=== PATIENT | male | born 1995 | race Caucasian/White ===

== ENCOUNTER 2018-01-17 14:36 | Emergency (ER) | payer OTHER ==
[2018-01-17 14:46] VITALS: BP 133/78
--- NOTE | 2018-01-17 15:04 | UC ---
Laceration HPI - HPI Summary HPI Summary: 22 yo male presents here 45 minutes after lacerating [place] Td up to date able to bear wt pain free - History Of Current Complaint Chief Complaint: UCLaceration Stated Complaint: KNEE LACERATION Time Seen by Provider: 01/17/18 14:48 Hx Obtained From: Patient Laceration Location: Knee - L Mechanism Of Injury: Blunt Trauma Severity: Mild Pain Intensity: 0 Pain Scale Used: 0-10 Numeric Aggravating Factors: Nothing Full Body (No Head): 1 - lac - Allergies/Home Medications Allergies/Adverse Reactions: Allergies Allergy/AdvReac Type Severity Reaction Status Date / Time No Known Allergies Allergy Verified 01/17/18 14:43 PMH/Surg Hx/FS Hx/Imm Hx Previously Healthy: Yes - Surgical History Surgical History: Yes Surgery Procedure, Year, and Place: R forearm surgery 2016 - Family History Known Family History: Positive: Hypertension - Social History Alcohol Use: Occasionally Substance Use Type: None Smoking Status (MU): Never Smoked Tobacco - Immunization History Most Recent Tetanus Shot: 2014 Review of Systems Constitutional: Negative Skin: Negative Eyes: Negative ENT: Negative Respiratory: Negative Cardiovascular: Negative Gastrointestinal: Negative Genitourinary: Negative Motor: Negative Neurovascular: Negative Musculoskeletal: Negative Neurological: Negative Psychological: Negative Is Patient Immunocompromised?: No All Other Systems Reviewed And Are Negative: Yes Physical Exam Triage Information Reviewed: Yes Appearance: Well-Appearing, No Pain Distress, Well-Nourished Vital Signs: Initial Vital Signs Temp 98.3 F 01/17/18 14:43 Pulse 62 01/17/18 14:43 Resp 18 01/17/18 14:43 BP 133/78 01/17/18 14:43 Pulse Ox 100 01/17/18 14:43 Eyes: Positive: Conjunctiva Clear ENT: Positive: Hearing grossly normal. Negative: Nasal congestion, Nasal drainage, Trismus, Hoarse voice Neck: Positive: Supple, Nontender Respiratory: Positive: Lungs clear, Normal breath sounds, No respiratory distress, No accessory muscle use Cardiovascular: Positive: RRR, No Murmur Musculoskeletal: Positive: Strength Intact, ROM Intact, No Edema Neurological: Positive: Alert Psychological Exam: Normal Skin Exam: Other - left knee lac Laceration Course/Dx - Differential Dx - Laceration/Wound Provider Diagnoses: left knee laceration Discharge - Sign-Out/Discharge Documenting (check all that apply): Patient Departure All imaging exams completed and their final reports reviewed: No Studies - Discharge Plan Condition: Stable Disposition: HOME Prescriptions: Cephalexin CAP* [Keflex CAP*] 500 mg PO QID #20 cap Patient Education Materials: Laceration (ED) Referrals: Chaparro Houston DO [Primary Care Provider] - 2 Days Additional Instructions: rest elevation tylenol or advil for pain take keflex as directed THIS LACERATION IS AT RISK OF INFECTION DUE TO THE MECHANISM OF INJURY despite being copiously irrigated and being placed on antibiotics it could still get infected see you MD in 2 days No hockey until cleared by him sutures out in about 2 weeks gently clean laceration and abrasions twice daily with soap and water thin film of ointment ( I like AQU[employer] healing ointment) dressing - Billing Disposition and Condition Condition: STABLE Disposition: Home
[2018-01-17] MEDS ORDERED: Lidocaine 2% W/EPI 1:100,000* 20 ML MDV INJ ONE (15:05)
[2018-01-17] MEDS ORDERED: Cephalexin CAP* 500 MG PO ONE (15:37)
== END 2018-01-17 15:54 | disposition home or self-care (01) ==
LOC: UCEAST 14:36
DX: S81.012A Laceration without foreign body, left knee, initial encounter (principal); X58.XXXA Exposure to other specified factors, initial encounter; Y93.39 Activity, other involving climbing, rappelling and jumping off; Y92.89 Other specified places as the place of occurrence of the external cause
CPT/HCPCS: 12001; 99202; A9270-GY; G0463